=== PATIENT | male | born 1960 | race Caucasian/White ===

== ENCOUNTER 2020-04-25 07:30 | Outpatient (RCR) | payer OTHER, SELFPAY ==
--- NOTE | 2020-03-21 08:44 | PTOPEVAL ---
Thank you for referring Jay Jackman to [facility].? The patient is scheduled to be seen for therapy? 2 x/week for 5 weeks. Please review, sign, date and return this plan of care AJ. I agree with and certify that the following plan of care is medically necessary. Referring Physician Date Attending Provider: Jeremi Diaz MD *PT Outpatient Evaluation Start: 03/21/20 07:26 Freq: Status: Active Protocol: Document 03/21/20 07:29 RAN (Rec: 03/21/20 08:32 RAN [id number]) Therapy Assessment Status Assessment Status Assessment Status Evaluation Outpatient Past Medical History Past Medical History Source of Past Medical History Patient,Recalled from Previous Visit, Confirmed with Patient /Family Cardiovascular History Hx Hypercholesterolemia Yes Musculoskeletal History Hx Arthritis Yes: carlos knee Evaluation Information Problem Diagnosis OA knee right Onset years Cause none Subjective Information Reports he has been having Query Text:As Reported By Patient/ knee pain for years. Twisting Family motions increase the pain. Reports turning in bed is painful in the knee. Pain is primarily on the inside of the knee. He has increased pain with prolonged standing, prolonged knee extension, prolonged sitting and prolonged walking. He will have increased pain with pivot -twist motion of the knee. He exercises with weights, denies pain with his workouts. He will use the TM for cardio . Does not perform a stretching program. Denies injection or previous therapy. He says the x-ray shows arthritis and bone spurs . Diagnostic Tests X-Rays For This Problem Yes Previous Treatments Previous Treatments For This Problem no Pain Assessment Timing of Pain Assessment Timing of Pain Assessment Assessment Pain Scale Pain Scale Used Numeric (1 - 10) Self Report Pain Assessment Right Knee(s) Reported Pain Level 0 Pain Description Aching Pain Frequency Chronic,Intermittent Lowest Pain Intensity 0 Greatest Pain Intensity 4 Pain Aggra
--- NOTE | 2020-04-25 11:57 | PTOPEVAL ---
Thank you for referring Jay Jackman to [facility].? Pt has received 11 therapy visits to address chronic knee pain. He demonstrates improved LE strength and performance with functional movement. He is indep with his HEP at this time. He has reached maximal potential with skilled therapy services with most of his therapy goals achieved. DC skilled PT services at this time Please review, sign, date and return this plan of care AJ. I agree with and certify that the following plan of care is medically necessary. Referring Physician Date Attending Provider: Jeremi Diaz MD Referring Provider: *PT Outpatient Evaluation Start: 03/21/20 07:26 Freq: Status: Active Protocol: Document 04/25/20 07:33 CAP (Rec: 04/25/20 08:15 CAP [id number]) Therapy Assessment Status Assessment Status Assessment Status Re-evaluation/Discharge Note Evaluation Information Problem Diagnosis OA knee right Onset years Cause none Additional Evaluation Detail Reports he has been having knee pain for years. He does have knee bone spurs. Subjective Information Reports he cont to have pain Query Text:As Reported By Patient/ waking him at night > 50% of Family the time. He does have an unpleasantness from hip to knee in various position. Describes it as a dull ache. Denies change in pain with prolonged standing or sitting if sitting in proper position. He tends to sit in twisted positions with prolonged sitting which does increase his knee pain. He cont to have increased pain with pivot-twist motion of the knee. He reports is balance and stretching are better with his HEP. Does feel like he can stretch more than before. He is not consistently using the foam roller due to discomfort. He is stretching more consistent. Pain Assessment Timing of Pain Assessment Timing of Pain Assessment Re-assessment Pain Scale Pain Scale Used Numeric (1 - 10) Self Report Pain Assessment Right Knee(s) Reported Pain Level 0 Pain Description Aching,Dull Pain Frequency Intermittent Lowest Pain Intensity 0
== END 2020-04-25 13:36 | disposition home or self-care (01) ==
LOC: ANHPT 07:30
PROVIDERS: PCP Family Medicine; Visit Provider Family Medicine
DX: M17.11 Unilateral primary osteoarthritis, right knee (principal)
CPT/HCPCS: 97110; 97112; 97140; 97161

== ENCOUNTER 2022-08-15 08:23 | Outpatient (CLI) | payer OTHER, SELFPAY ==
--- NOTE | 2022-08-15 08:32 | EST_ITS ---
Patient Info Name: Jay Jackman Age: 62 years : 1960 Gender: Male Ht: 69 in Wt: 250 lbs BSA: 2.40 m2 HR: 61 bpm BP: 139 / 62 mmHg Heart Rhythm: Sinus Rhythm Exam Date: 08/15/2022 8:42 AM Exam Location: [facility] Stress Patient Status: Outpatient Admit Date: 08/15/2022 Staff Ordering Physician: Adrianna Friedman Attending Provider: Adrianna Friedman Exercise Technologist: Shanae Ashton CT Exercise Physician: Tomy Olmstead DO Exam Type: CA stress test treadmill Study Info Indications R07.89 - Other chest pain A treadmill exercise stress test was performed. Summary 1. 1. Negative Gustavo exercise stress test for ischemic ST changes by ECG criteria. 2. 2. Good functional capacity, achieving 10 METs of workload. 3. 3. Appropriate HR response to exercise. 4. 4. Appropriate HR recovery at 1 minute post exercise. 5. 5. No imaging with stress testing. 6. 6. Patient informed of the above results. Protocol: Gustavo Stress ECG Details Stage: REST Duration (min): 1 min : 6 sec Speed (mph): 0.0 Grade (%): 0 HR (bpm): 61 SBP (mmHg): 139 DBP (mmHg): 92 METS: --- Stage: REST Duration (min): 9 min : 43 sec Speed (mph): 0.0 Grade (%): 0 HR (bpm): 67 SBP (mmHg): 139 DBP (mmHg): 92 METS: --- Stage: STAGE 1 Duration (min): 1 min : 0 sec Speed (mph): 1.7 Grade (%): 10 HR (bpm): 91 SBP (mmHg): 139 DBP (mmHg): 92 METS: --- Stage: STAGE 1 Duration (min): 2 min : 0 sec Speed (mph): 1.7 Grade (%): 10 HR (bpm): 98 SBP (mmHg): 139 DBP (mmHg): 92 METS: --- Stage: STAGE 1 Duration (min): 3 min : 0 sec Speed (mph): 1.7 Grade (%): 10 HR (bpm): 99 SBP (mmHg): 145 DBP (mmHg): 83 METS: --- Stage: STAGE 2 Duration (min): 1 min : 0 sec Speed (mph): 2.5 Grade (%): 12 HR (bpm): 102 SBP (mmHg): 145 DBP (mmHg): 83 METS: --- Stage: STAGE 2 Duration (min): 2 min : 0 sec Speed (mph): 2.5 Grade (%): 12 HR (bpm): 108 SBP (mmHg): 128 DBP (mmHg): 75 METS: --- Stage: STAGE 2 Duration (min): 3 min : 0 sec Speed (mph): 2.5 Grade (%): 12 HR (bpm): 110 SBP (mmHg): 128 DBP (mmHg): 75 METS: --- Stage: STAGE 3 Duration (min): 1 min : 0 sec Speed (mph): 3.4 Grade (%): 14 HR (bpm): 117 SBP (mmHg): 156 DBP (mmHg): 77 METS: --- Stage: STAGE 3 Duration (min): 2 min : 0 sec Speed (mph): 3.4 Grade (%): 14 HR (bpm): 125 SBP (mmHg): 156 DBP (mmHg): 77 METS: --- Stage: STAGE 1 Duration (min): 3 min : 0 sec Speed (mph): 1.7 Grade (%): 10 HR (bpm): 99 SBP (mmHg): 145 DBP (mmHg): 83 METS: --- Stage: STAGE 2 Duration (min): 3 min : 0 sec Speed (mph): 2.5 Grade (%): 12 HR (bpm): 110 SBP (mmHg): 128 DBP (mmHg): 75 METS: ---
== END 2022-08-15 08:24 | disposition home or self-care (01) ==
PROVIDERS: PCP Family Medicine; Visit Provider Nurse Practitioner Family
DX: R07.9 Chest pain, unspecified (principal)
CPT/HCPCS: 93017

== ENCOUNTER 2025-04-29 03:20 | Day surgery (SDC) | payer OTHER, SELFPAY ==
[2025-04-08 15:08] VITALS: BMI 35.4
--- OUTSIDE RECORDS SUMMARY | 2025-04-29 03:23 | XMS_ITS | Clinical Summary ---
Author Organization [facility] Address [address] [place] [id number] Care Team Providers Care Property Loss Insurance Claim Adjuster Name Role Phone Unavailable Primary Care Provider Unavailabl e Social History Tobacco Use Types Packs/Day Years Used Date Smoking Tobacco: Never Assessed Sex and Gender Information Value Date Recorded Sex Assigned at Not on file Legal Sex Male 4:08 PM CDT Gender Identity Not on file Sexual Orientation Not on file Plan of Treatment Health Maintenance Due Date Last Done Comments Colorectal Cancer Screening Colonoscopy (10 Years) 1960 Hepatitis C 1978 DTaP, Tdap and Td Vaccines ( 1 - Tdap) 1979 Pneumococcal Vaccine: 50+ Ye ars (1 of 1 - PCV) 2010 Zoster Vaccines (1 of 2) 2010 COVID-19 Vaccine (1 - 2024-2 6 season) 2025 Influenza Adult (#1) 2025 RSV Immunization or 60+ Years (1 - 1-dose 75+ series) 2035 Hepatitis A Vaccines Aged Out No long er eligible based on patient's age to complete this topic Meningococcal B Vaccine Aged Out No l onger eligible based on patient's age to complete this topic Meningococcal Vaccine Aged Out No denis khloe eligible based on patient's age to complete this topic RSV Immunizations Under 20 Months Aged Out No longer eligible based on patient's age to complete this topic
--- OUTSIDE RECORDS SUMMARY | 2025-04-29 03:23 | XMS_ITS | Encounter Summary ---
Author Organization [facility] Address [address] [facility] [place] [address] Care Team Providers Care Applications Development Consultant Name Role Phone Jeremi Diaz MD Primary Care Provider [phone] Encounter Details Date Type Department Care Team (Late st Contact Info) Description 08/29/2017 Lab Requisition [facility] Care D[facility] Lab [address] [facility], [facility] [place] [id number] Jeremi Diaz MD [address] [place] [address] Social History Tobacco Use Types Packs/Day Years Used Date Smoking Tobacco: Never Alcohol Use Standard Drinks/Week Comments No 0 (1 standard drink = 0.6 oz pur e alcohol) Sex and Gender Information Value Date Recorded Sex Assigned at Not on file Legal Sex Male 1:32 PM CDT Gender Identity Not on file Sexual Orientation Not on file documented as of this encounter Plan of Treatment Not on file documented as of this encounter Procedures Procedure Name Priority Date/Time Associated Diagnosis Comments DERMATOPATHOLOGY Routine 08/28/2017 12:0 0 AM CDT documented in this encounter Results * DERMATOPATHOLOGY (08/28/2017 12:00 AM CDT) Case Report Dermatopathology Report Case: [id number] Authorizing Provider: Jeremi Diaz MD Collected: 08/28/2017 12:00 AM Pathologist: Gonzalez Maxwell MD Received: 08/29/2017 11:05 AM Specimen: Skin, left upper back 2:48 PM CDT DERMATOPATHOLOGY LABORATORY Final Diagnosis Specimen A. SKIN, left upper back: SEBORRHEIC KERATOSIS (L82.1) PRESENT AT MARGIN 2:48 PM CDT DERMATOPATHOLOGY LABORATORY at 1448 CDT Clinical History Changing lesion. Check margins. 2:48 PM CDT DERMATOPATHOLOGY LABORATORY Gross Description Specimen: A: Received is one formalin filled container labeled with the patient's name and designated left upper back. The specimen consists of a shave biopsy (3 pieces) measuring [id number], inked green, 1v1j0pb, & 6v1y9kp. Jar 0+. 2:48 PM CDT DERMATOPATHOLOGY LABORATORY Microscopic Description Specimen A. SKIN, left upper back: Sections show an acanthotic lesion composed of relatively uniform keratinocytes. There is hyperkeratosis and pseudo horn cysts formation. This lesion is present at the margin of the specimen. 2:48 PM CDT DERMATOPATHOLOGY LABORATORY Disclaimer An external and internal positive and negative controls are appropriate for the histochemical, immunohistochemical and immunofluorescence stain(s) in this case (if any), except where stated explicitly. The performance characteristics of the stain(s) cited in this report were developed and its performance characteristic determined by the Dermatopathology Laboratory at [facility]. These tests need not be, and therefore are not, approved by the [place] Food and Drug Administration. The tests are used for clinical purposes. Billing Codes Specimen Charges Stain Charges 05718 1 2:48 PM CDT DERMATOPATHOLOGY LABORATORY Embedded Images 2:48 PM CDT DERMATOPATHOLOGY LABORATORY Pathology/Cytolog y TISSUE SPECIMEN FROM SKIN / Unknown 08/28/2017 08/29/2017 11:05 AM CDT us Jeremijose angel Diaz MD LAB - PATHOLOGY/CYTOLOGY NATALIO URIARTE Final Result DERMATOPATHOLOGY LABORATORY [facility] - Department of Dermatology [address] [place] [address], 5th Floor Lab [address] [phone] documented in this encounter Visit Diagnoses Not on filedocumented in this encounter Care Teams Applications Development Consultant Relationship Specialty Start Date End Date Jeremi Diaz MD [address] [place] [address] PCP - General Family Medicine 10/27/13 documented as of this encounter
--- OUTSIDE RECORDS SUMMARY | 2025-04-29 03:23 | XMS_ITS | Clinical Summary ---
Author Organization [facility] Address [address] [place] [address] Care Team Providers Care Clinical Registered Nurse Name Role Phone Jeremi Diaz MD Primary Care Provider [phone] Source Comments [facility],non-owned Affiliates and Associated Physician Practices is amultiple site organization consisting of ambulatory clinics and hospital sitesin [place], [place], [place] and [place]. This disclosure is being madepursuant to the Care Everywhere program and may not contain all information available regarding this patient. Last updated 18.[employer] [facility] Allergies No known active allergies Medications * Be aware that medications may not be up to date on this document. Alwaysverify current medications with the patient. atenolol (TENORMIN) 50 MG tablet Take 50 mg by mouth once daily. Active Social History Tobacco Use Types Packs/Day Years Used Date Smoking Tobacco: Never Alcohol Use Standard Drinks/Week Comments No 0 (1 standard drink = 0.6 oz pur e alcohol) Sex and Gender Information Value Date Recorded Sex Assigned at Not on file Legal Sex Male 1:32 PM CDT Gender Identity Not on file Sexual Orientation Not on file Last Filed Vital Signs Vital Sign Reading Time Taken Comments Blood Pressure 120/77 10/27/2013 4:25 PM CDT Pulse 69 10/27/2013 4:25 PM CDT Temperature 37 C (98.6 F) 10/27/2013 1:35 PM CDT Respiratory Rate 16 10/27/2013 4:25 PM CDT Oxygen Saturation 95% 10/27/2013 4:25 PM CDT Inhaled Oxygen Concentration - - Weight 120.8 kg (266 lb 6 oz) 10/27/2013 1:35 PM CDT Height 175.3 cm (5' 9) 10/27/2013 1:35 PM CDT Body Mass Index 39.34 10/27/2013 1:35 PM CDT Plan of Treatment Health Maintenance Due Date Last Done Comments COLOGUARD (AGES 45-75) - COL ON CA SCREENING 1960 COLON MONITORING 1960 COLONOSCOPY - COLON CA SCREENING 1960 CT COLONOGRAPHY - COLON CA SCREENING 1960 Colorectal Cancer Screening 1960 FIT - COLON CA SCREENING 1960 FLEX SIG - COLON CA SCREENING 1960 LIPID TESTING 1960 HIV SCREENING 1975 HEPATITIS C SCREENING 02/26/1978 DTAP/TDAP/TD VACCINES (1 - Tdap) 1979 PNEUMOCOCCAL VACCINE 50+ (1 of 1 - PCV) 2010 ZOSTER VACCINE (1 of 2) 2010 DEPRESSION SCREENING 05/20/2024 COVID-19 VACCINE (1 - 2024-2 6 season) 2025 INFLUENZA VACCINE (#1) 2025 Respiratory Syncytial Virus (RSV) Vaccine Pt: or over 60 yrs (1 - 1-dose 75+ series) 2035 HEPATITIS B VACCINE Aged Out No longe r eligible based on patient's age to complete this topic HIB VACCINE Aged Out No longer eligi ble based on patient's age to complete this topic HPV VACCINE Aged Out No longer eligi ble based on patient's age to complete this topic MENINGOCOCCAL (Group B) VACC INE SHARED DECISION-MAKING Aged Out No longer eligibl e based on patient's age to complete this topic MENINGOCOCCAL GROUPS A/C/Y/W VACCINE Aged Out No longer eligible b ased on patient's age to complete this topic Insurance [employer] ANTHEM ANTHEM Care Teams Clinical Registered Nurse Relationship Specialty Start Date End Date Jeremi Diaz MD [address] [place] [id number] PCP - General Family Medicine 10/27/13
--- OUTSIDE RECORDS SUMMARY | 2025-04-29 03:23 | XMS_ITS | Clinical Summary ---
Author Organization [facility] Address [address] [address] Phone Care Team Providers Care Ceo And President Name Role Phone Jeremi Diaz MD Primary Care Provider [phone] Social History Tobacco Use Types Packs/Day Years Used Date Smoking Tobacco: Never Assessed Sex and Gender Information Value Date Recorded Sex Assigned at Not on file Legal Sex Male 11:24 PM CDT Gender Identity Not on file Sexual Orientation Not on file Plan of Treatment Health Maintenance Due Date Last Done Comments Hepatitis C Virus (HCV) Screening 1960 TdaP Immunization 1960 Cologuard 2005 Immunochemical Fecal Occult Blood 2005 Pneumococcal Immunization (5 0+ years) (1 of 1 - PCV) 2010 Zoster Immunization (1 of 2) 2010 Colonoscopy 05/29/2023 05/29/2018 Colorectal Cancer Screening 05/29/2023 Influenza Immunization (#1) 2025 SARS-COV-2 Immunization ( season) 2025 Respiratory Syncytial Virus (RSV) Immunization (Adult) (1 - 1-dose 75+ series) 2035 Hepatitis B Immunization Aged Out No longer eligible based on patient's age to complete this topic Human Papillomavirus (HPV) Immunization Aged Out No longer eligible b ased on patient's age to complete this topic Meningococcal Immunization (ACWY) Aged Out No longer eligible based on patient's age to complete this topic Rotavirus Immunization Aged Out No lo nger eligible based on patient's age to complete this topic Procedures Procedure Name Priority Date/Time Associated Diagnosis Comments COLONOSCOPY Routine 05/29/2018 from Last 3 Months or Most Recently Relevant to Health Maintenance Results * COLONOSCOPY (05/29/2018) us Benjamin Pardo DO PROCEDURE/MINOR SURGICAL ORDERA BLES Final Result from Last 3 Months or Most Recently Relevant to Health Maintenance Care Teams Ceo And President Relationship Specialty Start Date End Date Jeremi Diaz MD [address] [address] PCP - General Family Medicine 06/24/17
[2025-04-29 06:54] VITALS: BP 137/79; PULSE 63; RESP 18; TEMP 36.1; O2SAT 98
[2025-04-29] MEDS: LACTATED RINGERS 1,000 ML 150 ML IV CONT (07:06)
--- NOTE | 2025-04-29 07:33 | P.PNAN_ITS ---
Anes - Initial Pre Proc Eval Procedure: Operation Date: 04/29/25 08:00 Proposed Procedures p Screening Colonoscopy - Hugh Kiser MD Date/Time: 04/29/25 07:33 Surgeon: Hugh Kiser MD Pre Op Diagnosis: Personal history of colon polyps, unspecified Patient Data Age: 65 Gender: M Height: 1.75 m Weight: 108 kg Last Vital Signs Temp 97 F L 04/29/25 06:54 Pulse 63 04/29/25 06:54 Resp 18 04/29/25 06:54 BP 137/79 04/29/25 06:54 Pulse Ox 98 04/29/25 06:54 O2 Del Method Room Air 04/29/25 06:54 Allergies Allergy/AdvReac Type Severity Reaction Status Date / Time No Known Allergies Allergy Verified 04/29/25 06:53 Home Medications ?Medication ?Instructions ?Recorded ?Confirmed ?Type ascorbate calcium (vitamin C) 500 1 g PO DAILY 2 04/08/25 History mg tablet glucosamine-chondroitin 250 mg-200 1 tablet PO DAILY 0 07/11/21 04/08/25 History mg tablet (Osteo Bi-Flex) agffmebg-uf-eslrg 300 mcg-K 60 1 tablet PO DAILY 07/1104/08/25 History mcg-lycop 600 mcg-lutein 300 mcg tablet (Centrum Silver Men) vitamin B complex 1 tablet PO DAILY 07/11/21 1 06/08/24 History ezetimibe 10 mg tablet See Rx Instructions .Route 0 10/04/24 04/08/25 Rx .COMPLEX #90 tabs atenolol 50 mg tablet See Rx Instructions .Route 0 10/05/24 04/08/25 Rx .COMPLEX #90 tabs omega-3 acid ethyl esters 1 gram 1 cap PO BID #180 cap s 02/10/25 04/08/25 Rx capsule Patient hx anesthesia problems: none Family hx anesthesia problems: none Results Review: All pre-operative results and documents have been reviewed as part of the pre- operative evaluation. REPLACED BY [facility] Past Medical History Medical History Adult BMI 37.0-37.9 kg/sq m BMI 36.0-36.9,adult BMI 32.0-32.9,adult Knee osteoarthritis BMI 33.0-33.9,adult Surgical History Surgical History Hx of tooth extraction Family History Family History Mother Hypertension COPD (chronic obstructive pulmonary disease) Dementia Father Cancer COVID-19 Anal cancer Sibling Vocal cord polyps Throat cancer Social History Social History Smoking status: Never smoker Second hand tobacco smoke exposure: No Alcohol intake: current Drinks per week: 1 Substance use: current Substance use type: marijuana Other substance usage details: vape Lack of Transportation: No Lack of Food: Never True Current Housing: I Have Housing Concerned About Future Housing: No Difficulty Paying Gas/Electric Bills: No Difficulty Paying for Meds: No Currently Unemployed: No Education: Bachelor's Degree Difficulty w/ Childcare or Family Care: No Living arrangements: with family Occupation/Education: occupation 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 Informed Consent: The patient's anesthetic plan and its attendant risks and benefits were discussed with the patient/family/POA. Questions were solicited and answers provided to the satisfaction of the patient/family/POA.
--- NOTE | 2025-04-29 07:55 | PM.HPGS ---
History of Present Illness History of Present Illness Consent: Risks, benefits, and alternatives have been discussed and questions answered. Patient agrees to proceed with procedure. Chief complaint: Personal history of colon polyps, unspecified Narrative: Jay Jackman is a 65 year old male with colon polyp about 5 years ago Review of Systems Review of Systems: All systems reviewed & are unremarkable except as noted in HPI and below PMFSH Past Medical History Medical History Adult BMI 37.0-37.9 kg/sq m BMI 36.0-36.9,adult BMI 32.0-32.9,adult Knee osteoarthritis BMI 33.0-33.9,adult Surgical History Surgical History Hx of tooth extraction Family History Family History Mother Hypertension COPD (chronic obstructive pulmonary disease) Dementia Father Cancer COVID-19 Anal cancer Sibling Vocal cord polyps Throat cancer Social History Social History Smoking status: Never smoker Second hand tobacco smoke exposure: No Alcohol intake: current Drinks per week: 1 Substance use: current Substance use type: marijuana Other substance usage details: vape Lack of Transportation: No Lack of Food: Never True Current Housing: I Have Housing Concerned About Future Housing: No Difficulty Paying Gas/Electric Bills: No Difficulty Paying for Meds: No Currently Unemployed: No Education: Bachelor's Degree Difficulty w/ Childcare or Family Care: No Living arrangements: with family Occupation/Education: occupation 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 Gender identity (if verbalized by the patient): Male Spiritual care concerns: No Meds Home Medications and Allergies Home Medications ?Medication ?Instructions ?Recorded ?Confirmed ?Type ascorbate calcium (vitamin C) 500 1 g PO DAILY 07/11/21 04/08/25 History mg tablet glucosamine-chondroitin 250 mg-200 1 tablet PO DAILY 07/11/21 04/08/25 History mg tablet (Osteo Bi-Flex) [id number]-zj-robhh 300 mcg-K 60 1 tablet PO DAILY 07/11/21 04/08/25 History mcg-lycop 600 mcg-lutein 300 mcg tablet (Centrum Silver Men) vitamin B complex 1 tablet PO DAILY 07/11/21 04/08/25 History ezetimibe 10 mg tablet See Rx Instructions .Route 10/04/24 04/08/25 Rx .COMPLEX #90 tabs atenolol 50 mg tablet See Rx Instructions .Route 10/05/24 04/08/25 Rx .COMPLEX #90 tabs omega-3 acid ethyl esters 1 gram 1 cap PO BID #180 caps 02/10/25 04/08/25 Rx capsule Allergies Allergy/AdvReac Type Severity Reaction Status Date / Time No Known Allergies Allergy Verified 04/29/25 06:53 Vital Signs Vital Signs - 24 hr 04/29/25 06:54 Temperature 97 F L Pulse Rate 63 Respiratory Rate 18 Blood Pressure 137/79 Pulse Oximetry 98 Oxygen Delivery Room Air Exam Const: General: comfortable and no acute distress HENMT: Face/Nose/Sinus: Normal nares present Eyes: General: appearance normal, both eyes and all related structures Neck: Neck: no JVD Resp: Auscultation: clear to auscultation bilaterally Cardio: Rate: regular rate Rhythm: regular rhythm GI: Inspection: non-distended GI Palp: Yes Soft to palpation Skin: General skin exam: normal color Extrem: General: normal to inspection Psych: Mental Status: mental status grossly normal Assessment and Plan Assessment and plan (1) Polyp of colon: Code(s): K63.5 - Polyp of colon Status: Resolved Assessment and Plan: colonoscopy
[2025-04-29 08:07] VITALS: BP 91/58; PULSE 59; RESP 19; O2SAT 94
--- NOTE | 2025-04-29 08:07 | S_PTH ---
PATIENT: Jay Jackman LOC: [facility]#:[id number] AGE/SX: 65/M ROOM: RE04/29/[address]: Hugh Kiser MD : [id number] BED: DIS: 04/29/2025 SPEC #: [id number] RECD: 04/29/25 09:17 STATUS: NICK REErasmo #: [id number] JOHN: 04/29/25 08:[address]: Hugh Kiser DEPT: [facility] Surgical RECD BY: Sheba Walker ENTERED: 04/29/25 09:18 SP TYPE: Surgical OTHR DR: Jeremi Diaz MD Tissues: A - Colon Polypectomy Procedures: Hematoxylin and Eosin Stain Gross and Microscopic Level 4
[2025-04-29 08:17] VITALS: BP 114/69; PULSE 62; RESP 18; O2SAT 95
[2025-04-29 08:27] VITALS: BP 111/72; PULSE 64; RESP 18; O2SAT 99
== END 2025-04-29 08:34 | disposition home or self-care (01) ==
PROVIDERS: PCP Family Medicine; Referring Provider Family Medicine; Visit Provider Internal Medicine Gastroenterology
PROC: 0DJD8ZZ Inspection of Lower Intestinal Tract, Via Natural or Artificial Opening Endoscopic (ICD-10-PCS; CPT 45378; principal; 2025-04-29 08:00)
DX: Z12.11 Encounter for screening for malignant neoplasm of colon (principal); D12.3 Benign neoplasm of transverse colon; M17.10 Unilateral primary osteoarthritis, unspecified knee; F12.90 Cannabis use, unspecified, uncomplicated; E66.9 Obesity, unspecified; Z68.35 Body mass index [BMI] 35.0-35.9, adult; Z98.890 Other specified postprocedural states; Z80.0 Family history of malignant neoplasm of digestive organs; Z80.1 Family history of malignant neoplasm of trachea, bronchus and lung
CPT/HCPCS: 45380; 88305; J2704; J7120